=== PATIENT | female | born 1950 | race Caucasian/White ===

== ENCOUNTER → 2017-01-05 | Outpatient (CLI) | payer OTHER | LOC: GIMAGING 12:33 | PROVIDERS: ATTEND Family Medicine | DX: M25.552 Pain in left hip (principal); M16.11 Unilateral primary osteoarthritis, right hip; M35.3 Polymyalgia rheumatica; Z96.642 Presence of left artificial hip joint | CPT/HCPCS: 72170-PO ==

== ENCOUNTER → 2017-02-18 | Outpatient (CLI) | payer OTHER | LOC: FCPNEURO 09:26 | PROVIDERS: ATTEND Psychiatry & Neurology Sleep Medicine | DX: G47.61 Periodic limb movement disorder (principal) ==